=== PATIENT | male | born 1965 | race Caucasian/White ===

== ENCOUNTER 2019-10-07 22:45 | Emergency (ER) | payer MEDICAID ==
[~2019-10-07] VITALS: Ht 185.4 cm; Wt 112.0 kg
[2019-10-07 22:50] VITALS: BP_SYST 138
--- NOTE | 2019-10-07 22:50 | NUR ---
Patient to ER bed H2 to gown for evaluation. Side rails up.
--- NOTE | 2019-10-07 22:51 | NUR ---
Pt brought by police department for medical clearance, pt has Hx of Diabetes type I, currently using insulin pump, BS 257, respirations even and unlabored, denies N/V, skin pink and warm, cap refill <3, no accidents occurred, ambulatory , pt speaking in full sentences, will cont to monitor.
--- NOTE | 2019-10-07 22:55 | NUR ---
Accu check done, 257 - MD aware.
--- NOTE | 2019-10-07 22:57 | NUR ---
Dr Fuentes at bedside examining patient
[2019-10-07 23:12] LABS: BILIRUBIN,URINE NEGATIVE (NEGATIVE); BLOOD, URINE NEGATIVE (NEGATIVE); CLARITY/URINE CLEAR (CLEAR); COLOR,URINE YELLOW (YELLOW); GLUCOSE,URINE 3+ (NEGATIVE); KETONES,URINE NEGATIVE (NEGATIVE); LEUKOCYTE ESTERASE ,URINE NEGATIVE (NEGATIVE); NITRITE, URINE NEGATIVE (NEGATIVE); PROTEIN URINE 1+ (NEGATIVE)
[2019-10-07 23:20] LABS: BACTERIA,URINE RARE /HPF (None Seen); RBC,URINE 0-3 /HPF (0-3); WBC,URINE 0-3 /HPF (0-3)
[2019-10-07 23:40] VITALS: BP_SYST 138
--- NOTE | 2019-10-07 23:40 | NUR ---
Patient given written and verbal discharge instructions and verbalizes understanding. ER MD Dr. Fuentes discussed with patient the results and treatment provided. Patient in stable condition. ID arm band removed. Patient educated on pain management and to follow up with PMD. Pain Scale 0/10. Opportunity for questions provided and answered. Medication side effect fact sheet provided.
== END 2019-10-07 23:40 ==
LOC: SED 22:45
DX: E10.65 Type 1 diabetes mellitus with hyperglycemia (principal)
CPT/HCPCS: 81000-TC; 99283